=== PATIENT | male | born 1975 | race Caucasian/White ===

== ENCOUNTER 2022-12-22 08:11 | Outpatient (CLI) | payer OTHER, SELFPAY | END 2022-12-22 08:12 | disposition home or self-care (01) | PROVIDERS: PCP Family Medicine; Visit Provider Family Medicine | DX: Z00.00 Encounter for general adult medical examination without abnormal findings (principal); R53.83 Other fatigue; R73.03 Prediabetes; Z13.6 Encounter for screening for cardiovascular disorders; K40.90 Unilateral inguinal hernia, without obstruction or gangrene, not specified as recurrent; Z12.5 Encounter for screening for malignant neoplasm of prostate; Z01.818 Encounter for other preprocedural examination | CPT/HCPCS: 80053; 80061; 84153; 84270; 84402; 84403; 84443 ==

== ENCOUNTER 2022-12-30 09:39 | Outpatient (CLI) | payer OTHER, SELFPAY ==
[2022-12-30 10:45] VITALS: BP 140/78; PULSE 103; RESP 18
--- NOTE | 2022-12-30 18:58 | W.PM.STED ---
Stress Test Note Date Date Seen: 12/30/22 Date of test: 12/30/22 Providers Primary care provider: Leonard Robledo Stress test physician: Annalise Randle Stress Test Note Stress test ordered: Exercise Stress Test Indication for test: Chest pain Stress test medicine: None Results discussion: Resting EKG: Sinus rhythm, 74 beats per minute. Resting blood pressure: 124/82 Stress test: Patient exercised on the treadmill following standard Mason protocol. He exercised to 9 minutes 32 seconds stopping due to reaching maximal heart rate and reaching exercise capacity. This was equivalent to 11.1 Mets. He achieved a maximum heart rate of 168 beats per minute which was 115% of a calculated target heart rate of 145. He had a maximal blood pressure of 182/78. Rate pressure product was 26,832. During exercise he started to have some multifocal PVCs. This did go into a trigeminal pattern in the 3rd stage and a short period of quadrageminy starting in recovery which was done about a minute into recovery. No significant PVC burden was seen after that. There was no definite ischemia. Patient noted some mild shortness of breath, lightheadedness right after exercise that abated quickly. He actually noted during exercise the right chest symptoms he was having decreased. From prior patient is exhibiting ventricular changes of this nature and discussion with Cardiology, recommendations for further testing are warranted. Impression: Subjectively negative but objective EKG findings with trigeminy and quadrageminy during stress testing. Follow up suggested: Patient was discharged in stable condition. Did review with him that this may be completely benign, could indicate conductive issues, could indicate underlying ischemic issues. There was no ST segment changes however on the stress test which makes ischemic disease less likely. It is recommended that this patient proceed with an echo, further cardiac stress testing with stress echo and monitoring either with Holter or ZIO patch if possible. Cardiology consultation can be considered as well.
== END 2022-12-30 10:33 | disposition home or self-care (01) ==
PROVIDERS: PCP Family Medicine; Visit Provider Family Medicine
DX: R07.9 Chest pain, unspecified (principal)
CPT/HCPCS: 93016; 93017

== ENCOUNTER 2023-01-13 14:33 | Outpatient (CLI) | payer OTHER, SELFPAY ==
--- NOTE | 2023-01-13 16:03 | W.PM.STED ---
Stress Test Note Date Date of test: 01/13/23 Providers Primary care provider: Leonard Robledo Stress test physician: Eitan Machado Stress Test Note Stress test ordered: Stress Echo Indication for test: Dyspnea Stress test medicine: Definity Results discussion: Patient is a very nice 47-year-old gentleman who presents for the above test after discussion the risks benefits and side effects he would like to proceed. Cardiac stress test medical history form is reviewed. Pretest EKG shows normal sinus rhythm with a ventricular rate of 67, blood pressure 133/84. Standard Mason protocol is used over a 10 minute . Test is terminated because of fulfillment of protocol, metabolic equivalent 12.1 Mets, his maximum was 172, no chest pain no shortness of breath or noted, or any other anginal equivalent symptoms. He tolerated this very well. Was some ST wave depression of 2 mm noted inferiorly, and 1 mm laterally from V4 through V6, Impression: Positive electrographic stress test with inducement of above findings, patient had a high clinical workload, and this may be a false positive, await echo images and clinical correlation with these will be needed, Follow up suggested: Await echo images clinical correlation with this will be needed. See above dictation. Patient left this testing facility in excellent condition.
[2023-01-13] MEDS: PERFLUTREN LIPID MICROSPHERES 2 ML VIAL IV (16:22)
[2023-01-13 16:26] VITALS: BP 116/73; PULSE 98
== END 2023-01-13 14:34 | disposition home or self-care (01) ==
PROVIDERS: PCP Family Medicine; Visit Provider Family Medicine
DX: R06.09 Other forms of dyspnea (principal); R94.39 Abnormal result of other cardiovascular function study
CPT/HCPCS: 93016; 93325; 93351; Q9957

== ENCOUNTER 2023-01-13 19:35 | Outpatient (CLI) | payer OTHER, SELFPAY | END 2023-01-13 19:36 | disposition home or self-care (01) | LOC: SLEEP 19:35 | PROVIDERS: PCP Family Medicine; Visit Provider Family Medicine | DX: G47.33 Obstructive sleep apnea (adult) (pediatric) (principal) | CPT/HCPCS: 95806; Q9957 ==

== ENCOUNTER 2023-09-17 15:03 | Outpatient (CLI) | payer OTHER, SELFPAY | END 2023-09-17 15:04 | disposition home or self-care (01) | LOC: NFLDREF 09-18 06:49 | PROVIDERS: PCP Family Medicine; Referring Provider Family Medicine; Visit Provider Family Medicine | DX: R73.03 Prediabetes (principal); K21.9 Gastro-esophageal reflux disease without esophagitis; Z12.5 Encounter for screening for malignant neoplasm of prostate; Z13.1 Encounter for screening for diabetes mellitus; Z13.220 Encounter for screening for lipoid disorders | CPT/HCPCS: 80053; 80061 ==

== ENCOUNTER 2024-06-21 08:57 | Outpatient (CLI) | payer OTHER, SELFPAY | END 2024-06-21 08:58 | disposition home or self-care (01) | LOC: NFLDREF 06-22 02:21 | PROVIDERS: PCP Family Medicine; Referring Provider Family Medicine; Visit Provider Family Medicine | DX: E11.9 Type 2 diabetes mellitus without complications (principal); E78.00 Pure hypercholesterolemia, unspecified; Z12.5 Encounter for screening for malignant neoplasm of prostate | CPT/HCPCS: 80053; 80061; G0103 ==

== ENCOUNTER 2024-08-02 07:04 | Outpatient (CLI) | payer OTHER, SELFPAY ==
--- NOTE | 2024-08-02 07:15 | CRLHL7_ITS ---
For Patients: As a result of the Century Cures Act, medical imaging exams and procedure reports are released immediately into your electronic medical record. You may view this report before your referring provider. If you have questions, please contact your health care provider. INDICATION: Fatty liver. TECHNIQUE: Ultrasound abdomen limited. Sonographic images of the right upper quadrant were obtained using garcia-scale and color Doppler images. COMPARISON: None. FINDINGS: Limited exam secondary to bowel gas as well as diffuse increase in liver echogenicity. Liver: Normal in size (15.9 cm) and echotexture. Diffuse increase in liver echogenicity. No suspicious masses. No intrahepatic biliary dilatation. Hepatopetal flow of main portal vein with maintained respiratory phasic variation. Gallbladder: No stones or sludge. Normal wall thickness. No pericholecystic fluid. Knight`s sign is negative at the time of ultrasound exam. Common bile duct: 3 mm. Pancreas: Partially imaged secondary to bowel gas. Included pancreatic head body and tail to show normal echotexture without duct dilatation. Vasculature: Patent IVC. Proximal abdominal aorta is obscured by bowel gas. Mid and distal abdominal aorta is of normal caliber. Right kidney measures 10.0 x 6.4 cm. Preserved vascularity. No hydronephrosis. Right renal cortical thickness measures 2.4 cm. IMPRESSION: 1. Diffuse hepatic steatosis. 2. No cholelithiasis or acute cholecystitis. Dictated by Wale Sosa MD @ 08/02/2024 9:28:59 AM (Electronically Signed)
--- NOTE | 2024-08-02 08:00 | CRLHL7_ITS ---
For Patients: As a result of the 21st Century Cures Act, medical imaging exams and procedure reports are released immediately into your electronic medical record. You may view this report before your referring provider. If you have questions, please contact your health care provider. INDICATION: Pulmonary nodule TECHNIQUE: Volumetric helical scanning of the thorax was performed without IV contrast material. Coronal and sagittal reconstructions were obtained. COMPARISON: Cardiac calcium scoring CT of 06/30/2024 FINDINGS: A noncalcified 5 mm left lower lobe nodule is demonstrated on image 53 of series 3. A noncalcified juxtapleural 3 mm left lower lobe nodule is noted on image 52. A 4 mm ground-glass nodule is demonstrated in the left upper lobe on image 19. Calcified granulomas in the perihilar right upper lobe are demonstrated. No infiltrate is evident. There is no significant airway abnormality. No pleural effusion is demonstrated. There is no mediastinal or hilar lymphadenopathy. Calcified right hilar and mediastinal lymph nodes are noted. The heart size is normal. Images of the upper abdomen demonstrate fatty change in liver and 3 small low-attenuation lesions which demonstrate water-attenuation, consistent with cysts. IMPRESSION: 1. Noncalcified 5 mm and 3 mm left lower lobe nodules and 4 mm ground-glass left upper lobe nodule. In accordance with Fleischner Society Guidelines (see below), if the patient is at low risk for lung cancer, no additional evaluation is necessary. If he has a smoking history or is otherwise at high risk for lung cancer, a 1 [address] up [address] is recommended. 2. Fatty liver and small liver cysts. FLEISCHNER SOCIETY GUIDELINES: LOW RISK: - nodule less than 6 mm: No follow-up needed. - nodule 6-8 mm: Initial follow-up CT at 6-12 months and then at 18-24 months if no change. - nodule greater than 8 mm: Follow-up CTs at around 3, 9, and 24 months. Dynamic contrast-enhanced CT, PET, and/or biopsy. MULTIPLE LOW RISK: - nodule less than 6 mm: No follow-up needed. - nodule 6-8 mm: CT at 3-6 months, then consider CT at 18-24 months. - nodule greater than 8 mm: CT at 3-6 months, then consider CT at 18-24 months. HIGH RISK: - nodule less than 6 mm: Follow-up at 12 months. If no change, no further imaging needed. - nodule 6-8 mm: Initial follow-up CT at 3-6 months and then at 9-12 and 24 months if no change. - nodule greater than 8 mm: Follow-up CTs at around 3, 9, and 24 months. Dynamic contrast-enhanced CT, PET, and/or biopsy. MULTIPLE HIGH RISK: - nodule less than 6 mm: Optional CT at 12 months. - nodule 6-8 mm: CT at 3-6 months, then at 18-24 months. - nodule greater than 8 mm: CT at 3-6 months, then at 18-24 months. HIGH RISK is defined as one or more of the following: - at least 20 pack-year smoking history or equivalent second-hand exposure. - personal history of cancer or family history of lung cancer. - occupational exposure (asbestos, beryllium, silica, uranium, radon) - chronic interstitial/fibrotic lung disease. Please note that all CT scans at this facility use dose modulation, iterative reconstruction, and/or weight-based dosing when appropriate to reduce radiation dose to as low as reasonably achievable. Dictated by Flo Moore MD @ 08/02/2024 2:21:53 PM (Electronically Signed)
== END 2024-08-02 07:05 | disposition home or self-care (01) ==
LOC: US 07:04
PROVIDERS: PCP Family Medicine; Visit Provider Family Medicine
DX: K76.0 Fatty (change of) liver, not elsewhere classified (principal); R91.8 Other nonspecific abnormal finding of lung field; K76.89 Other specified diseases of liver
CPT/HCPCS: 71250; 76705

== ENCOUNTER 2024-09-01 06:01 | Day surgery (SDC) | payer OTHER, SELFPAY ==
[2024-09-01] VITALS (14 sets, daily range): BP systolic 94–134; BP diastolic 45–84; PULSE 58–78; RESP 12–16; TEMP 36.3–36.6; O2SAT 92–96; BMI 37.8
[2024-09-01] MEDS: LACTATED RINGERS 1000 ML 1,000 ML 100 ML IV (06:15)
[2024-09-01] MEDS: SODIUM CHLORIDE 0.9 % (FLUSH) 10 ML SYRINGE IVF (06:36)
--- NOTE | 2024-09-01 07:33 | W.PM.H&PU ---
History & Physical Update History & Physical Update H&P Reviewed and patient assessed: No changes noted
[2024-09-01] MEDS: CEFAZOLIN 2 GM INJ IVP (07:44)
[2024-09-01] MEDS: BUPIVACAINE 0.25% 30 ML INJECTION (07:54)
--- NOTE | 2024-09-01 08:59 | PM.GSPRC ---
Operative Note Date of procedure: 09/01/24 Pre-op diagnosis: Right inguinal hernia Post-op diagnosis: Same, direct hernia and indirect hernia Type of Procedure: Laparoscopic inguinal hernia repair, right Indications: Patient is a 49-year-old male who presented to clinic with a symptomatic right inguinal hernia. Please see consultation note regarding full discussion about different treatment options. Risks and benefits of operative intervention were discussed at length with the patient. Risks included but was not limited to: Bleeding, infection, risk of damage to surrounding structures, possible need for additional procedures, possible need to convert to an open operation and postoperative complications such as pneumonia, pulmonary emboli or [place]. All questions and concerns were addressed with the patient agreeing to proceed. Procedure Description: After discussing the risks and benefits of the procedure, the patient signed informed consent.? The operative site was marked and the patient was brought to the operating room and placed on the operating table in supine position.? Care was taken to pad the patient's pressure points.?? The patient was then intubated by anesthesia.?? The operative site was then prepped and draped in the usual sterile fashion.? A time-out was then performed. A curvilinear incision was made below the umbilicus. Dissection was carried down to subcutaneous tissue until the anterior rectus fascia was encountered. This was incised off the midline. The rectus muscles were then retracted exposing the posterior fascia. A space maker port with a dissecting balloon was then introduced. The preperitoneal space was inflated under direct vision. The balloon was then removed and the preperitoneal space insufflated. A 10 mm 30 degree scope was then advanced and the area was surveyed for bleeding. Dissection began on the right side. Hiram's ligament and the pubic bone was exposed medially. A moderate-sized direct hernia was appreciated. The sac was dissected down from the anterior abdominal wall. Following this the dissection was carried out laterally. A small indirect defect was noted. The sac was stuck to the cord structures but able to be dissected free using a combination of sharp and blunt dissection. A small tear in the peritoneum was created, this was closed with several 5 mm clips. Once the sac was completely reduced, the cord structures were dissected circumfrentially and a piece of Parietex mesh for the appropriate side was placed into the abdomen. This was positioned around the cord structures. A Tacker was used to attach the mesh medially at Hiram's ligament. Once this was completed the sac was placed on top of the mesh and the preperitoneal space desufflated under direct vision. The ports were removed. The posterior peritoneum from the umbilical port site was grasped and a small opening created with Metzenbaum scissors to desufflated the abdomen. The fascia from the infraumbilical port was then closed with 0 Vicryl. The skin incisions were closed with absorbable subcuticular suture. Sterile dressings were then applied. The scrotum was examined to ensure that both testicles were down. Instrument sponge and needle counts were correct at the end of the case. Findings: Direct and indirect hernia, right Anesthesia: GETA Surgeon: Radha Cardenas MD Estimated blood loss (mL): 5 Condition: stable Disposition: PACU
--- NOTE | 2024-09-01 09:26 | P.ANES_ITS ---
Anesthesia Charges Start Date/Time Anesthesia Start Date: 09/01/24 Anesthesia Start Time: 07:30 Stop Date/Time Anesthesia Stop Date: 09/01/24 Anesthesia Stop Time: 09:10 Coding CPT Codes CPT Codes: ANESTH SURGERY OF ABDOMEN - 43774 ([id number]) P2 - PATIENT W/MILD SYST DISEASE, QK - CLERICAL SUPPORT SPECIALIST 2-4 CNCRNT ANES PROC, QX - METER INSPECTOR SVC W/ MD MED DIRECTION
--- NOTE | 2024-09-01 09:26 | W.ANESCHARGE ---
Anesthesia Charges Start Date/Time Anesthesia Start Date: 09/01/24 Anesthesia Start Time: 07:30 Stop Date/Time Anesthesia Stop Date: 09/01/24 Anesthesia Stop Time: 09:10 Coding CPT Codes CPT Codes: ANESTH SURGERY OF ABDOMEN - 74787 ([id number]) P2 - PATIENT W/MILD SYST DISEASE, QK - ROLL CHANGER 2-4 CNCRNT ANES PROC, QX - TABLE TENDER SLUDGE SVC W/ MD MED DIRECTION
--- NOTE | 2024-09-01 10:53 | P.ANES_ITS ---
Anesthesia Charges Start Date/Time Anesthesia Start Date: 09/01/24 Anesthesia Start Time: 07:30 Stop Date/Time Anesthesia Stop Date: 09/01/24 Anesthesia Stop Time: 09:10 Coding CPT Codes CPT Codes: ANESTH SURGERY OF ABDOMEN - 92353 ([id number]) P3 - PATIENT W/SEVERE SYS DISEASE, QK - COIN TELLER 2-4 CNCRNT ANES PROC, QX - BAND HEAD SAW OPERATOR SVC W/ MD MED DIRECTION
--- NOTE | 2024-09-01 10:53 | W.ANESCHARGE ---
Anesthesia Charges Start Date/Time Anesthesia Start Date: 09/01/24 Anesthesia Start Time: 07:30 Stop Date/Time Anesthesia Stop Date: 09/01/24 Anesthesia Stop Time: 09:10 Coding CPT Codes CPT Codes: ANESTH SURGERY OF ABDOMEN - 24447 ([id number]) P3 - PATIENT W/SEVERE SYS DISEASE, QK - MILL SUPERVISOR 2-4 CNCRNT ANES PROC, QX - CLINICAL NURSING ASSISTANT SVC W/ MD MED DIRECTION
[2024-09-01] MEDS: METOCLOPRAMIDE HCL 5 MG/ML INJ 10 MG IVP (10:58)
== END 2024-09-01 11:19 | disposition home or self-care (01) ==
LOC: OR 06:02
PROVIDERS: PCP Family Medicine; Visit Provider Surgery
PROC: (CPT 49650; principal; 2024-09-01 07:30)
DX: K40.90 Unilateral inguinal hernia, without obstruction or gangrene, not specified as recurrent (principal); E11.9 Type 2 diabetes mellitus without complications; G47.33 Obstructive sleep apnea (adult) (pediatric)
CPT/HCPCS: 49650; 00840; 00860; 82962; C1781; J0330; J0665; J0690; J1100; J1171; J2250; J2405; J2704; J2765; J3010; J3490; J7120

== ENCOUNTER 2025-01-13 08:53 | Outpatient (CLI) | payer OTHER, SELFPAY | END 2025-01-13 08:54 | disposition home or self-care (01) | LOC: NFLDREF 01-18 10:27 | PROVIDERS: PCP Family Medicine; Referring Provider Family Medicine; Visit Provider Family Medicine | DX: K76.0 Fatty (change of) liver, not elsewhere classified (principal); E11.9 Type 2 diabetes mellitus without complications | CPT/HCPCS: 80076; 82043; 82570 ==